=== PATIENT | male | born 1985 | race Two or more races ===

== ENCOUNTER 2018-02-28 02:52 | Emergency (ER) | payer MEDICAID ==
[~2018-02-28] VITALS: Ht 175.3 cm; Wt 85.7 kg
[2018-02-28] MEDS ORDERED: HYDROcodone-ACET 10/325MG TAB PO ONE (07:30)
[2018-02-28 08:29] VITALS: BP 137/71
== END 2018-02-28 08:50 | disposition home or self-care (01) ==
LOC: ER 02:52
DX: S39.012A Strain of muscle, fascia and tendon of lower back, initial encounter (principal); S46.911A Strain of unspecified muscle, fascia and tendon at shoulder and upper arm level, right arm, initial encounter; R51 Headache; F17.210 Nicotine dependence, cigarettes, uncomplicated; V49.9XXA Car occupant (driver) (passenger) injured in unspecified traffic accident, initial encounter; Y93.89 Activity, other specified; Y99.8 Other external cause status; Y92.488 Other paved roadways as the place of occurrence of the external cause
CPT/HCPCS: 70450; 71250; 73030; 74176